=== PATIENT | female | born 1950 | race African-American/Black ===

== ENCOUNTER 2017-01-13 16:45 | Emergency (ER) | payer OTHER, BC ==
[~2017-01-13] VITALS: Ht 160 cm; Wt 76.2 kg
[2017-01-13 18:06] LABS: ABSOLUTE NEUTROPHILS 7.7 thou/uL (1.4-8.2); BASOPHILS 0.5 % (0.0-2.0); EOSINOPHILS 0.2 % (0.0-3.0); HEMOGLOBIN 12.3 gm/dL (12.0-15.0); LYMPHOCYTES 19.2 % (24.0-44.0); MCH 26.9 pg (26.0-34.0); MCHC 34.3 g/dL (28.0-37.0); MCV 78.6 fL (80.0-100.0); PLATELET COUNT 174 thou/uL (150-400); POLYS 71.1 % (36.0-66.0); RBC 4.57 mil/uL (4.20-5.00); WBC 10.9 thou/uL (4.0-11.0)
[2017-01-13 18:07] LABS: MANUAL DIFF NO
[2017-01-13 18:13] LABS: CALCIUM 8.3 mg/dL (8.5-10.1); CREATININE 0.9 mg/dL (0.6-1.0); POTASSIUM 3.3 mmol/L (3.5-5.1)
[2017-01-13 19:00] LABS: URINE BILIRUBIN NEGATIVE (Negative); URINE BLOOD NEGATIVE (Negative); URINE COLOR YELLOW; URINE GLUCOSE-RANDOM* NEGATIVE (Negative); URINE KETONES NEGATIVE (Negative); URINE LEUKOCYTES-REFLEX NEGATIVE (Negative); URINE PROTEIN (DIPSTICK) NEGATIVE (Negative); URINE SPECIFIC GRAVITY <= 1.005 (1.003-1.035); URINE UROBILINOGEN 0.2 E.U./dl (0.2-1.0)
[2017-01-13] MEDS ORDERED: ZPAK PO (19:18)
[2017-01-13 19:37] VITALS: BP 129/57
== END 2017-01-13 19:46 | disposition home or self-care (01) ==
LOC: ER 16:45
PROVIDERS: Emergency Medicine
DX: J18.9 Pneumonia, unspecified organism (principal); J06.9 Acute upper respiratory infection, unspecified

== ENCOUNTER → 2018-03-13 | Outpatient (CLI) | payer OTHER, BC ==
[~2018-03-13] MED LIST: ZPAK PO
== END ==
LOC: MRI 09:40
DX: M47.26 Other spondylosis with radiculopathy, lumbar region (principal); M48.061 Spinal stenosis, lumbar region without neurogenic claudication; G62.9 Polyneuropathy, unspecified

== ENCOUNTER 2018-07-28 11:29 | Emergency (ER) | payer OTHER, BC ==
[~2018-07-28] VITALS: Ht 157.5 cm; Wt 74.8 kg
--- NOTE | ~2018-07-28 | EKG ---
[address] [address] ELECTROCARDIOGRAM REPORT Name: JANE CHADWICK [id number] Admission: 07/28/18 Attend Phys: Discharge: 07/28/18 Date of : 50 Report #: [id number] THIS REPORT FOR: //name// [facility] ED Test Date: 2018-07-28 Test Time: 11:40:58 Pat Name: JANE CHADWICK Department: Room: Gender: F General Operator: GIAN : 1950 Requested By: Soila Pollock Order Number: [id number] MD: Mack Escoto Measurements Intervals [place] Rate: 67 P: -2 IN: 157 QRS: 13 QRSD: 88 T: 21 QT: 427 QTc: 451 Interpretive Statements Sinus rhythm Left ventricular hypertrophy No previous ECG available for comparison Electronically Signed On 07-29-2018 11:17:30 RESEARCH EXECUTIVE by aMck Escoto [email or web address] <ELECTRONICALLY SIGNED> By: Mack Escoto MD 07/29/18 1117 1140 1140 MD ALVARO Barber
[2018-07-28] MEDS ORDERED: WELLBUTRIN SR100 MG PO (11:53)
[2018-07-28] MEDS ORDERED: PROTONIX 20 MG20 M1 PO (11:53)
[2018-07-28 12:32] LABS: ABSOLUTE NEUTROPHILS 4.3 thou/uL (1.4-8.2); BASOPHILS 1.1 % (0.0-2.0); EOSINOPHILS 1.3 % (0.0-3.0); HEMATOCRIT 39.9 % (37.0-47.0); LYMPHOCYTES 33.4 % (24.0-44.0); MCH 27.7 pg (26.0-34.0); PLATELET COUNT 233 thou/uL (150-400); POLYS 59.2 % (36.0-66.0); RBC 5.05 mil/uL (4.20-5.00); RDW 16.3 % (10.5-14.5); WBC 7.2 thou/uL (4.0-11.0)
[2018-07-28 12:35] LABS: ANION GAP 6 mmol/L (7-16); BUN 19 mg/dL (7-18); CHLORIDE 105 mmol/L (98-107); CO2 30 mmol/L (21-32); CREATININE 0.9 mg/dL (0.6-1.0); GLUCOSE 106 mg/dL (74-106); SODIUM 141 mmol/L (136-145)
[2018-07-28 12:36] LABS: POTASSIUM 4.4 mmol/L (3.5-5.1)
[2018-07-28 12:43] LABS: DIRECT BILIRUBIN < 0.1 mg/dL (<0.1-0.3); LIPASE 106 U/L (73-393); SGOT 26 U/L (15-37); SGPT 27 U/L (30-65); TOTAL BILIRUBIN 0.4 mg/dL (<0.1-1.0); TOTAL PROTEIN 8.3 g/dL (6.4-8.2); TROPONIN-I <0.06 ng/mL (<0.06)
[2018-07-28] MEDS ORDERED: PRILOSEC 20 MG20 MG PO (14:05)
[2018-07-28 14:23] VITALS: BP 126/64
== END 2018-07-28 14:24 | disposition home or self-care (01) ==
LOC: ER 11:29
PROVIDERS: Emergency Medicine
DX: R07.89 Other chest pain (principal)